=== PATIENT | male | born 1995 | race Caucasian/White ===

== ENCOUNTER → 2018-05-11 14:26 | Outpatient (CLI) | payer OTHER, SELFPAY ==
[2018-05-11 09:16] VITALS: BMI 25.4
[2018-05-11 16:43] LABS: Chlamydia Trachomatis by PCR Negative (Negative); Neisserai gonorrhoeae by PCR Negative (Negative); Probe Check PASS; Sample Adequacy Control PASS; Specimen Processing Control PASS
== END ==
PROVIDERS: Referring Provider Physician Assistant; Visit Provider Physician Assistant
DX: Z11.3 Encounter for screening for infections with a predominantly sexual mode of transmission (principal)
CPT/HCPCS: 87491; 87591